=== PATIENT | female | born 1990 | race Caucasian/White ===

== ENCOUNTER 2025-03-19 18:37 | Emergency (ER) | payer OTHER ==
[~2025-03-19] VITALS: Ht 167.6 cm; Wt 131.5 kg
[~2025-03-19 18:37] MED LIST: CLARITIN10 MG PO; MEDROL DOSEPAK4 MG PO; TOPAMAX50 MG PO
[2025-03-19] MEDS ORDERED: LEVOTHYROXINE175 MC1 PO (18:49)
[2025-03-19] MEDS ORDERED: PRENATAL GUMMI1 EACH PO (18:50)
== END 2025-03-19 21:12 | disposition home or self-care (01) ==
LOC: ED 18:37
DX: O9A.212 Injury, poisoning and certain other consequences of external causes complicating pregnancy, second trimester (principal); S69.80XA Other specified injuries of unspecified wrist, hand and finger(s), initial encounter; Z88.2 Allergy status to sulfonamides; Z88.8 Allergy status to other drugs, medicaments and biological substances; Z3A.18 18 weeks gestation of pregnancy; W46.0XXA Contact with hypodermic needle, initial encounter; Y93.89 Activity, other specified; Y92.239 Unspecified place in hospital as the place of occurrence of the external cause; Y99.0 Civilian activity done for income or pay